=== PATIENT | male | born 1985 | race African-American/Black ===

== ENCOUNTER 2019-07-15 14:23 | Emergency (ER) | payer SELFPAY ==
[2019-07-15] MEDS ORDERED: Sodium Chloride 0.9% 10 ML Syringe FLUSH PRN (14:26)
[2019-07-15] MEDS ORDERED: Sodium Chloride 0.9% 2.5 ML Syringe FLUSH PRN (14:26)
[2019-07-15] MEDS ORDERED: Sodium Chloride 0.9% 1,000 ML IV ONE (14:26)
[2019-07-15] MEDS ORDERED: Ondansetron 4 MG/2 ML SDV IVPUSH ONE (14:26)
--- NOTE | 2019-07-15 14:28 | EDM.PDOC ---
ED HPI GENERAL MEDICAL PROBLEM - General Chief Complaint: Abdominal Pain Stated Complaint: ABDOMINAL PAIN Time Seen by Provider: 07/15/19 14:26 Source of Information: Reports: Patient History Limitations: Reports: No Limitations - History of Present Illness INITIAL COMMENTS - FREE TEXT/NARRATIVE: 33-year-old male with no past medical history presents with right-sided abdominal pain since yesterday. Pain waxes and wanes and is throbbing in nature , was rated 10/10 at its worst, currently rated at 2/10. Denies fever, chills, nausea, vomiting, diarrhea, dysuria, penile discharge, testicular pain. Pain is localized to the right lateral flank and radiates to the right lower quadrant. He took a Percocet yesterday with improvement to his pain. ROS: A 10-point review of systems, other than pertinent positives and negatives as stated per HPI, is otherwise negative PHYSICAL EXAM General: AOx4, GCS = 15, No distress HEENT: dry mucous membrane Neck: supple, no meningismus, no Kernig or Brudzinski Cardiac: S1S2 RRR Respiratory: CTAB, no crackles or rales, no wheezing Abdomen: Soft, nontender, no rebound or guarding, nondistended, no pulsatile mass. Back: nontender Musculoskeletal: NVI distally, no deformity Neuro: No focal deficits, CN 2 - 12 WNL. MEDICAL DECISION MAKING: I reviewed the patients past medical records, lab and radiographic findings. I discussed the case with family members. My differential diagnosis included: Ureterolithiasis, appendicitis, colitis. Patient did not demonstrate fever, leukocytosis, UTI. Patient's CT did not demonstrate ureterolithiasis on the right side, there was no mentioning of appendicitis. CT did demonstrate signs suggestive of a recently passed right ureteral stone. His urine demonstrated hematuria, consistent with that presentation. He has no pain on reexam, I do not think he needs to be hospitalized for further studies. Patient is stable for discharge. right lower quadrant abd Pain Score (Numeric/FACES): 2 - Related Data Allergies Allergy/AdvReac Type Severity Reaction Status Date / Time No Known Allergies Allergy Verified 07/15/19 14:32 Home Meds: Home Meds . [No Known Home Meds] 07/15/19 [History] ED ROS GENERAL - Review of Systems Review Of Systems: See Below (See dictation) ED EXAM, GI/ABD - Physical Exam Exam: See Below (See dictation) Course - Vital Signs Last Recorded V/S: Last Vital Signs Temp 97.3 F 07/15/19 14:32 Pulse 68 07/15/19 15:27 Resp 16 07/15/19 15:27 BP 137/98 H 07/15/19 15:27 Pulse Ox 98 07/15/19 15:27 - Orders/Labs/Meds Labs: Laboratory Tests 07/15/19 07/15/19 07/15/19 Range/Units 14:39 14:44 14:44 WBC 7.16 (4.0-11.0) K/uL RBC 4.97 (4.50-5.90) M/uL Hgb 14.3 (13.0-17.0) g/dL Hct 42.6 (38.0-50.0) % MCV 85.7 (80.0-98.0) fL MCH 28.8 (27.0-32.0) pg MCHC 33.6 (31.0-37.0) g/dL RDW Std Deviation 43.2 (28.0-62.0) fl RDW Coeff of Jennifer 14 (11.0-15.0) % Plt Count 301 (150-400) K/uL MPV 9.50 (7.40-12.00) fL Neut % (Auto) 58.2 (48.0-80.0) % Lymph % (Auto) 30.7 (16.0-40.0) % [place] % (Auto) 8.7 (0.0-15.0) % Eos % (Auto) 1.7 (0.0-7.0) % Baso % (Auto) 0.7 (0.0-1.5) % Neut # (Auto) 4.2 (1.4-5.7) K/uL Lymph # (Auto) 2.2 (0.6-2.4) K/uL [place] # (Auto) 0.6 (0.0-0.8) K/uL Eos # (Auto) 0.1 (0.0-0.7) K/uL Baso # (Auto) 0.1 (0.0-0.1) K/uL Nucleated RBC % 0.0 /100WBC Nucleated RBCs # 0 K/uL Sodium 141 (136-148) mmol/L Potassium 3.4 L (3.5-5.1) mmol/L Chloride 103 (98-107) mmol/L Carbon Dioxide 30.1 (21.0-32.0) mmol/L BUN 14 (7.0-18.0) mg/dL Creatinine 1.4 H (0.8-1.3) mg/dL Est Cr Clr Drug Dosing 71.12 mL/min Estimated GFR (MDRD) > 60.0 ml/min Glucose 88 (74-106) mg/dL Calcium 8.6 (8.5-10.1) mg/dL Total Bilirubin 1.3 H (0.2-1.0) mg/dL AST 17 (15-37) IU/L ALT 21 (14-63) IU/L Alkaline Phosphatase 63 (46-116) U/L Total Protein 7.3 (6.4-8.2) g/dL Albumin 4.1 (3.4-5.0) g/dL Globulin 3.2 (2.6-4.0) g/dL Albumin/Globulin Ratio 1.3 (0.9-1.6) Lipase 56 L (73-393) U/L Urine Color YELLOW Urine Appearance CLEAR Urine pH 6.0 (5.0-8.0) Ur Specific [place] 1.015 (1.001-1.035) Urine Protein NEGATIVE (NEGATIVE) mg/dL Urine Glucose (UA) NEGATIVE (NEGATIVE) mg/dL Urine Ketones NEGATIVE (NEGATIVE) mg/dL Urine Occult Blood MODERATE H (NEGATIVE) Urine Nitrite NEGATIVE (NEGATIVE) Urine Bilirubin NEGATIVE (NEGATIVE) Urine Urobilinogen 0.2 (<2.0) EU/dL Ur Leukocyte Esterase TRACE H (NEGATIVE) Urine RBC 4-6 (0-2/HPF) Urine WBC 6-8 (0-5/HPF) Ur Epithelial Cells FEW (NONE-FEW) Urine Bacteria FEW (NEGATIVE) Urine Mucus LIGHT (NONE-MOD) Meds: Medications Discontinued Medications Generic Name Dose Route Start Last Admin Trade Name Freq PRN Reason Stop Dose Admin Sodium Chloride 1,000 mls @ 999 mls/hr 07/15/19 14:26 07/15/19 14:52 Normal Saline IV 07/15/19 15:26 Not Given BOLUS ONE Ondansetron HCl 4 mg 07/15/19 14:26 07/15/19 14:52 Zofran IVPUSH 07/15/19 14:27 Not Given ONETIME ONE Sodium Chloride 10 ml 07/15/19 14:26 Saline Flush FLUSH ASDIRECTED PRN Keep Vein Open Sodium Chloride 2.5 ml 07/15/19 14:26 Saline Flush FLUSH ASDIRECTED PRN Keep Vein Open - Re-Assessments/Exams Free Text/Narrative Re-Assessment/Exam: 07/15/19 16:03 After treatments and a prolonged observation period in the ER, the patient improved clinically and is stable for discharge. He has no pain at this point. I performed a repeat examination and the patient has not demonstrated any new abnormal findings. Patient exhibits normal vital signs and has exhibited a normal gait. I advised the patient to return to the ER for reevaluation if symptoms worsened, and to follow up with their PCP within 2-3 days. Departure - Departure Time of Disposition: 16:16 Disposition: Home, Self-Care 01 Condition: Good Clinical Impression: Kidney stone - Discharge Information Instructions: Kidney Stones, [id number] Referrals: PCP,None [Primary Care Provider] - Forms: ED Department Discharge Additional Instructions: The following information is given to patients seen in the emergency department who are being discharged to home. This information is to outline your options for follow-up care. We provide all patients seen in our emergency department with a follow-up referral. The need for follow-up, as well as the timing and circumstances, are variable depending upon the specifics of your emergency department visit. If you don't have a primary care physician on staff, we will provide you with a referral. We always advise you to contact your personal physician following an emergency department visit to inform them of the circumstance of the visit and for follow-up with them and/or the need for any referrals to a consulting specialist. The emergency department will also refer you to a specialist when appropriate. This referral assures that you have the opportunity for follow-up care with a specialist. All of these measure are taken in an effort to provide you with optimal care, which includes your follow-up. Under all circumstances we always encourage you to contact your private physician who remains a resource for coordinating your care. When calling for follow-up care, please make the office aware that this follow-up is from your recent emergency room visit. If for any reason you are refused follow-up, please contact the [facility] Emergency Department at and asked to speak to the emergency department charge nurse. Sepsis Event Note - Focused Exam Vital Signs: Vital Signs Temp Pulse Resp BP Pulse Ox 07/15/19 15:27 68 16 137/98 H 98 07/15/19 14:32 97.3 F 69 16 156/101 H 97 Date Exam was Performed: 07/15/19 Time Exam was Performed: 16:16
[2019-07-15 15:19] LABS: BLOOD UREA NITROGEN,BUN 14 mg/dL (7.0-18.0); CARBON DIOXIDE,CO2 30.1 mmol/L (21.0-32.0); CHLORIDE,CL 103 mmol/L (98-107); GLUCOSE RANDOM 88 mg/dL (74-106); LIPASE 56 U/L (73-393); POTASSIUM,K 3.4 mmol/L (3.5-5.1); SODIUM,NA 141 mmol/L (136-148)
--- NOTE | 2019-07-15 15:29 | CT ---
INDICATION: Right flank pain starting last night . Comparison :none. TECHNIQUE: CT abdomen and pelvis without intravenous or oral contrast; coronal and sagittal reformats. FINDINGS: No abnormal intra pulmonary nodular densities through the lung bases. No evidence of pleural effusion. Normal size cardiac silhouette without any evidence of pericardial effusion. No focal hepatic or splenic pathology. No pancreatic pathology. Gallbladder is unremarkable. No adrenal pathology. 3-5 mm nonobstructing calculi left kidney. No kidneys stones on the right side. Minimal prominence of the right upper ureter and the right intrarenal collecting system. No stones identified in the course of the right ureter. Normal appendix. No pneumoperitoneum or intestinal obstruction. Copious amounts of retained stool identified in the colon. IMPRESSION: 1. Nonobstructing renal calculi left kidney. 2. Minimal prominence of the right intrarenal collecting system and the right upper ureter; it is possible the patient could have passed a stone recently. 3. No stone identified within the course of the right ureter at this time. 4. Normal appendix. 5. Copious amounts of retained stool identified in the colon. Please note that all CT scans at this facility use dose modulation, iterative reconstruction, and/or weight-based dosing when appropriate to reduce radiation dose to as low as reasonably achievable. Dictated by Daniella Girard MD @ Jul 15 2019 3:24PM Signed by Dr. Daniella Girard @ Jul 15 2019 3:29PM
== END 2019-07-15 16:30 | disposition home or self-care (01) ==
LOC: MW.ED 14:23
DX: N20.0 Calculus of kidney (principal)
CPT/HCPCS: 36415; 74176; 74176-26; 80053; 81001; 83690; 85025; 99284-25